=== PATIENT | female | born 1935 | race Asian ===

== ENCOUNTER 2023-04-11 06:28 | Emergency (ER) | payer OTHER ==
[~2023-04-11] VITALS: Ht 157.5 cm; Wt 55.0 kg
[~2023-04-11 06:28] MED LIST: LANOXIN; WARFARIN
[2023-04-11 07:00] VITALS: TEMP 98.1
[2023-04-11 07:30] VITALS: PULSE 95; RESP 16; O2SAT 94
[2023-04-11 09:00] VITALS: BP 147/90; PULSE 91; RESP 24; O2SAT 94
== END 2023-04-11 09:27 | disposition home or self-care (01) ==
LOC: EDUNIT# 06:28 → EDBD 06:28 → ER 06:28
DX: M26.601 Right temporomandibular joint disorder, unspecified (principal); I48.91 Unspecified atrial fibrillation; Z79.899 Other long term (current) drug therapy
CPT/HCPCS: 70486; 93005